=== PATIENT | female | born 1985 | race Caucasian/White ===

== ENCOUNTER 2020-01-06 22:49 | Emergency (ER) | payer OTHER ==
--- NOTE | 2020-01-06 23:24 | EDM.PDOC ---
ED HPI GENERAL MEDICAL PROBLEM - General Stated Complaint: STOMACH PAIN Time Seen by Provider: 01/06/20 23:20 Source of Information: Reports: Patient History Limitations: Reports: No Limitations - History of Present Illness INITIAL COMMENTS - FREE TEXT/NARRATIVE: 34-year-old female with onset of nausea at approximately 6 PM tonight and then approximately 9 PM tonight she had sudden onset of pain in her right lower quadrant and right pelvic area that was burning and has progressively worsened over time. When she arrived initially the pain was a 10/10. Now the pain as an 8/10. She feels that it radiates all the way down both of her legs. There is some nausea but no vomiting associated with this. Reports that at the end of last month she was having some vaginal bleeding and was seen through the [facility] in [place] and was found to be . She had ultrasound and was told that there was no baby in the uterus and that they were concerned that she had a tubal . Apparently the patient was sent to [place] and received 2 injections of this and the quads were followed down here with the last one being on 12/28/2019 that was 143. The patient reports that following this her any Sanf ord pretty much gone away and her vaginal bleeding resolved. She had been doing well until about 3 days ago when her vaginal bleeding recurred "like a normal period" and then tonight developed the pain as above. She's had no fevers or chills. She does report that tonight when she urinated she felt there was burning with urination and that she had to urinate more frequently. No weakness or dizziness. There are no other associated signs or symptoms. There are no other modifying factors. Onset: Other (3 days ago with vaginal bleeding and today with nausea and malaise and then right pelvic) Duration: Getting Worse Location: Reports: Abdomen Quality: Reports: Burning, Sharp Severity: Severe Improves with: Reports: None Worsens with: Reports: Other (Palpation), Movement Context: Reports: Other Associated Symptoms: Reports: Malaise, Nausea/Vomiting Treatments [employer]: Reports: Other (see below) (Nothing) RLQ Pain Score (Numeric/FACES): 7 - Related Data Allergies Allergy/AdvReac Type Severity Reaction Status Date / Time No Known Allergies Allergy Verified 09/29/14 09:32 Home Meds: Home Meds Pnv No.95/Ferrous Fum/Folic AC [ Tablet] 1 tab PO DAILY 09/29/14 [History] Past Medical History - Past Health History Medical/Surgical History: Denies Medical/Surgical History Other SUPERINTENDENT TESTS History: 5, para 2, AB 3 - Past Surgical History Other Surgical History Comment: No previous surgeries. Social & Family History - Tobacco Use Smoking Status *Q: Never Smoker - Alcohol Use Alcohol Use History: No - Living Situation & Occupation Living situation: Reports: Occupation: Other (Homemaker) ED ROS GENERAL - Review of Systems Review Of Systems: See Below Constitutional: Reports: No Symptoms HEENT: Reports: No Symptoms Respiratory: Reports: No Symptoms Cardiovascular: Reports: No Symptoms GI/Abdominal: Reports: Abdominal Pain, Nausea. Denies: Diarrhea, Vomiting : Reports: Dysuria, Frequency, Irregular Menses, Pain Musculoskeletal: Reports: No Symptoms Skin: Reports: No Symptoms Neurological: Reports: No Symptoms Hematologic/Lymphatic: Reports: No Symptoms Immunologic: Reports: No Symptoms ED EXAM, GI/ABD - Physical Exam Exam: See Below Exam Limited By: No Limitations General Appearance: Alert, WD/WN, Moderate Distress Eyes: Bilateral: Normal Appearance, EOMI Ears: Normal External Exam, Hearing Grossly Normal Nose: Normal Inspection, Normal Mucosa, No Blood Throat/Mouth: Normal Inspection, Normal Lips, Normal Oropharynx, Normal Voice, No Airway Compromise Head: Atraumatic, Normocephalic Neck: Normal Inspection, Supple, Non-Tender, Full Range of Motion Respiratory/Chest: No Respiratory Distress, Lungs Clear Cardiovascular: Normal Peripheral Pulses, Regular Rate, Rhythm, No Murmur GI/Abdominal Exam: Normal Bowel Sounds, Soft, No Mass, Guarding Back Exam: Normal Inspection Extremities: Normal Inspection, Normal Range of Motion, Non-Tender, No Pedal Edema, Normal Capillary Refill Neurological: Alert, Oriented, CN II-XII Intact, No Motor/Sensory Deficits Skin Exam: Warm, Dry, Intact, Normal Color, No Rash Lymphatic: No Adenopathy Course - Vital Signs Last Recorded V/S: Last Vital Signs Temp 36.6 C 01/06/20 22:49 Pulse 89 01/06/20 22:49 Resp 18 01/06/20 22:49 BP 131/91 H 01/06/20 22:49 Pulse Ox 96 01/06/20 22:49 - Orders/Labs/Meds Orders: Active Orders 24 hr Category Date Time Status Sodium Chloride 0.9% [Normal Saline] 1,000 ml Med 01/06/20 23:45 Active IV ASDIRECTED Sodium Chloride 0.9% [Saline Flush] Med 01/06/20 23:41 Active 10 ml FLUSH ASDIRECTED PRN Peripheral IV Insertion Adult [OM.PC] Routine Oth 01/06/20 23:41 Ordered Medication Orders Sodium Chloride (Normal Saline) 1,000 mls @ 125 mls/hr IV ASDIRECTED MANINDER Last Admin: 01/07/20 01:09 Dose: 125 mls/hr Documented by: FRANCOISE Sodium Chloride (Saline Flush) 10 ml FLUSH ASDIRECTED PRN PRN Reason: Keep Vein Open Last Admin: 01/07/20 00:09 Dose: 10 ml Documented by: FRANCOISE Labs: Laboratory Tests 01/06/20 01/06/20 01/06/20 Range/Units 22:53 22:53 23:51 WBC 8.1 (4.5-12.0) X10-3/uL RBC 4.21 (3.23-5.20) x10(6)uL Hgb 11.8 (11.5-15.5) g/dL Hct 36.2 (30.0-51.3) % MCV 86.0 (80-96) fL MCH 28.0 (27.7-33.6) pg MCHC 32.6 (32.2-35.4) g/dL RDW 12.5 (11.5-15.5) % Plt Count 293 (125-369) X10(3)uL MPV 7.4 (7.4-10.4) fL Neut % (Auto) 74.7 (46-82) % Lymph % (Auto) 18.5 (13-37) % [place] % (Auto) 5.3 (4-12) % Eos % (Auto) 1 (1.0-5.0) % Baso % (Auto) 0 (0-2) % Neut # (Auto) 6.1 (1.6-8.3) # Lymph # (Auto) 1.5 (0.6-5.0) # [place] # (Auto) 0.4 (0.0-1.3) # Eos # (Auto) 0.1 (0.0-0.8) # Baso # (Auto) 0.0 (0.0-0.2) # PT (9.0-11.1) sec INR (1.00-1.24) APTT (24.4-33.2) SECONDS Sodium (135-145) mmol/L Potassium (3.5-5.3) mmol/L Chloride (100-110) mmol/L Carbon Dioxide (21-32) mmol/L BUN (7-18) mg/dL Creatinine (0.55-1.02) mg/dL Est Cr Clr Drug Dosing mL/min Estimated GFR (MDRD) (>60) BUN/Creatinine Ratio (9-20) Glucose (80-116) mg/dL Calcium (8.6-10.2) mg/dL Total Bilirubin (0.1-1.3) mg/dL AST (5-25) IU/L ALT (12-36) U/L Alkaline Phosphatase (56-112) IU/L Total Protein (6.0-8.0) g/dL Albumin (3.5-5.2) g/dL Globulin g/dL Albumin/Globulin Ratio HCG, Quant (<5) mIU/mL Urine Color Yellow (YELLOW) Urine Appearance Cloudy (CLEAR) Urine pH 8.0 H (5.0-6.5) Ur Specific [place] 1.010 (1.010-1.025) Urine Protein Negative (NEGATIVE) mg/dL Urine Glucose (UA) Normal (NORMAL) mg/dL Urine Ketones Negative (NEGATIVE) mg/dL Urine Occult Blood Large H (NEGATIVE) Urine Nitrite Negative (NEGATIVE) Urine Bilirubin Negative (NEGATIVE) Urine Urobilinogen Normal (NEGATIVE) mg/dL Ur Leukocyte Esterase Moderate H (NEGATIVE) Urine RBC >100 H (0-5) Urine WBC 0-5 (0-5) Ur Squamous Epith Cells Few H (NS,R,O) Urine Bacteria Few H (NS) Urine HCG, Qual Positive H (NEGATIVE) 01/06/20 01/06/20 01/06/20 Range/Units 23:51 23:51 23:51 WBC (4.5-12.0) X10-3/uL RBC (3.23-5.20) x10(6)uL Hgb (11.5-15.5) g/dL Hct (30.0-51.3) % MCV (80-96) fL MCH (27.7-33.6) pg MCHC (32.2-35.4) g/dL RDW (11.5-15.5) % Plt Count (125-369) X10(3)uL MPV (7.4-10.4) fL Neut % (Auto) (46-82) % Lymph % (Auto) (13-37) % [place] % (Auto) (4-12) % Eos % (Auto) (1.0-5.0) % Baso % (Auto) (0-2) % Neut # (Auto) (1.6-8.3) # Lymph # (Auto) (0.6-5.0) # [place] # (Auto) (0.0-1.3) # Eos # (Auto) (0.0-0.8) # Baso # (Auto) (0.0-0.2) # PT 10.3 (9.0-11.1) sec INR 0.95 L (1.00-1.24) APTT 26.2 (24.4-33.2) SECONDS Sodium 141 (135-145) mmol/L Potassium 3.7 (3.5-5.3) mmol/L Chloride 104 (100-110) mmol/L Carbon Dioxide 28 (21-32) mmol/L BUN 16 (7-18) mg/dL Creatinine 1.0 (0.55-1.02) mg/dL Est Cr Clr Drug Dosing 56.94 mL/min Estimated GFR (MDRD) > 60 (>60) BUN/Creatinine Ratio 16.0 (9-20) Glucose 117 H (80-116) mg/dL Calcium 9.0 (8.6-10.2) mg/dL Total Bilirubin 0.2 (0.1-1.3) mg/dL AST 20 (5-25) IU/L ALT 30 (12-36) U/L Alkaline Phosphatase 63 (56-112) IU/L Total Protein 7.1 (6.0-8.0) g/dL Albumin 3.8 (3.5-5.2) g/dL Globulin 3.3 g/dL Albumin/Globulin Ratio 1.2 HCG, Quant 86 (<5) mIU/mL Urine Color (YELLOW) Urine Appearance (CLEAR) Urine pH (5.0-6.5) Ur Specific [place] (1.010-1.025) Urine Protein (NEGATIVE) mg/dL Urine Glucose (UA) (NORMAL) mg/dL Urine Ketones (NEGATIVE) mg/dL Urine Occult Blood (NEGATIVE) Urine Nitrite (NEGATIVE) Urine Bilirubin (NEGATIVE) Urine Urobilinogen (NEGATIVE) mg/dL Ur Leukocyte Esterase (NEGATIVE) Urine RBC (0-5) Urine WBC (0-5) Ur Squamous Epith Cells (NS,R,O) Urine Bacteria (NS) Urine HCG, Qual (NEGATIVE) Meds: Medications Generic Name Dose Route Start Last Admin Trade Name Freq PRN Reason Stop Dose Admin Sodium Chloride 1,000 mls @ 125 mls/hr 01/06/20 23:45 01/07/20 01:09 Normal Saline IV 125 mls/hr ASDIRECTED MANINDER Administration Sodium Chloride 10 ml 01/06/20 23:41 01/07/20 00:09 Saline Flush FLUSH 10 ml ASDIRECTED PRN Administration Keep Vein Open Discontinued Medications Generic Name Dose Route Start Last Admin Trade Name Freq PRN Reason Stop Dose Admin Hydromorphone HCl 1 mg 01/06/20 23:44 01/06/20 23:57 Dilaudid IVPUSH 01/06/20 23:45 1 mg ONETIME ONE Administration Hydromorphone HCl 1 mg 01/07/20 01:18 Dilaudid IVPUSH 01/07/20 01:19 ONETIME ONE Sodium Chloride 1,000 mls @ 999 mls/hr 01/06/20 23:44 01/07/20 00:09 Normal Saline IV 01/07/20 00:44 999 mls/hr .BOLUS ONE Administration Ondansetron HCl 4 mg 01/06/20 23:44 01/06/20 23:57 Zofran IVPUSH 01/06/20 23:45 4 mg ONETIME ONE Administration Ondansetron HCl 4 mg 01/07/20 01:18 Zofran IVPUSH 01/07/20 01:19 ONETIME ONE - Re-Assessments/Exams Free Text/Narrative Re-Assessment/Exam: 01/07/20 00:45: The patient has pain in his right lower quadrant and pelvic area that is quite severe. She has a positive test and quantitative test that was 83. Her last quadrant was performed on 12/27/2028 was 143. I am concerned that she has a progressive ectopic that was not adequately treated with methotrexate. She will need ultrasound of her pelvis and SUPERINTENDENT TESTS specialty services which are not available at [facility]. She has remained hemodynamically stable while here. She had a decrease in her pain with a 1 mg Dilaudid dose earlier and that pain has come back now. The patient requests that I call and discuss her case with the doctors at [facility] in [place]. 01/07/20 01:10: I discussed the patient's case with Dr. Evans, ED physician at [facility] in [place], and he has agreed to accept the patient in transfer. I discussed this with the patient and with her and they would want to transfer the patient via private vehicle. The patient is to pain to eat or drink until cleared by the doctors at [facility] in [place]. Departure - Departure Time of Disposition: 01:20 Disposition: DC/Tfer to Acute Hospital 02 Condition: Good (Stable) Clinical Impression: Pelvic pain during Ectopic Qualifiers: Location of ectopic : unspecified location Intrauterine status: unspecified Qualified Code(s): O00.90 - Unspecified ectopic without intrauterine - Discharge Information Referrals: Stephen Monteiro MD [Primary Care Provider] - Additional Instructions: You appear to have an ectopic or tubal . You are being transferred to [facility] for further evaluation and treatment. You are being taken there by your in a private vehicle. You should go directly to the emergency department at the [facility]. Do not have anything to eat or drink until cleared by the doctors at [facility] in [place]. Sepsis Event Note (ED) - Focused Exam Vital Signs: Vital Signs Temp Pulse Resp BP Pulse Ox 01/06/20 22:49 36.6 C 89 18 131/91 H 96 - My Orders Last 24 Hours: My Active Orders 01/06/20 23:41 Sodium Chloride 0.9% [Saline Flush] 10 ml FLUSH ASDIRECTED PRN Peripheral IV Insertion Adult [OM.PC] Routine 01/06/20 23:45 Sodium Chloride 0.9% [Normal Saline] 1,000 ml IV ASDIRECTED - Assessment/Plan Last 24 Hours: My Active Orders 01/06/20 23:41 Sodium Chloride 0.9% [Saline Flush] 10 ml FLUSH ASDIRECTED PRN Peripheral IV Insertion Adult [OM.PC] Routine 01/06/20 23:45 Sodium Chloride 0.9% [Normal Saline] 1,000 ml IV ASDIRECTED
[2020-01-06] MEDS ORDERED: Sodium Chloride 0.9% 10 ML Syringe FLUSH PRN (23:41)
[2020-01-06] MEDS ORDERED: HYDROmorphone 2 MG/ML SDV IVPUSH ONE (23:44)
[2020-01-06] MEDS ORDERED: Sodium Chloride 0.9% 1,000 ML IV ONE (23:44)
[2020-01-06] MEDS ORDERED: Ondansetron 4 MG/2 ML SDV IVPUSH ONE (23:44)
[2020-01-06] MEDS ORDERED: Sodium Chloride 0.9% 1,000 ML IV SCH (23:45)
[2020-01-07] MEDS ORDERED: Ondansetron 4 MG/2 ML SDV IVPUSH ONE (01:18)
[2020-01-07] MEDS ORDERED: HYDROmorphone 2 MG/ML SDV IVPUSH ONE (01:18)
[2020-01-07 01:36] VITALS: BP 130/76; PULSE 81
== END 2020-01-07 01:39 ==
LOC: FB.ED 22:49
DX: O00.90 Unspecified ectopic pregnancy without intrauterine pregnancy (principal)
CPT/HCPCS: 36415; 80053; 81001; 81025; 84702; 85025; 85610; 85730; 96374; 96375; 96376; 99284; J1170; J2405; J7030